=== PATIENT | female | born 1935 | race Caucasian/White ===

== ENCOUNTER → 2023-08-10 13:43 | Outpatient (REF) | payer OTHER, SELFPAY | LOC: DHCBS HW 13:43 | PROVIDERS: ATTENDING PHYSICIAN Internal Medicine Interventional Cardiology; FAMILY PHYSICIAN Internal Medicine Geriatric Medicine | DX: R00.2 Palpitations (principal) | CPT/HCPCS: 93306 ==

== ENCOUNTER → 2023-09-11 12:13 | Outpatient (REF) | payer OTHER, SELFPAY ==
[2023-09-11 13:21] LABS: Blood Urea Nitrogen 17 mg/dl (7-17); Calcium 9.8 mg/dl (8.4-10.2); Carbon Dioxide 29 mmol/L (22-30); Chloride 101 mmol/L (98-107); Glucose 101 mg/dl (70-99); Potassium 4.5 mmol/L (3.5-5.1); Sodium 137 mmol/L (135-145); eGFR > 60.00
== END ==
LOC: REG 12:13
PROVIDERS: ATTENDING PHYSICIAN Internal Medicine Interventional Cardiology; FAMILY PHYSICIAN Internal Medicine Geriatric Medicine
DX: I10 Essential (primary) hypertension (principal)
CPT/HCPCS: 36415; 80048

== ENCOUNTER → 2024-08-26 12:34 | Outpatient (REF) | payer OTHER, SELFPAY ==
[2024-08-26 13:20] LABS: % Basophils 0.9 % (0-2); % Eosinophils 1.9 % (0-6); % Immature Granulocytes 0.3 % (0-0.5); % Lymphocytes 20.3 % (20.5-51.1); % Monocytes 5.5 % (1.7-9.3); % Neutrophils 71.1 % (42.2-75.2); Absolute Basophils 0.1 10^3/uL (0-0.2); Absolute Eosinophils 0.1 10^3/uL (0-0.7); Absolute Lymphocytes 1.4 10^3/uL (1.2-3.4); Absolute Monocytes 0.4 10^3/uL (0.1-0.6); Absolute Neutrophils 4.9 10^3/uL (1.4-6.5); Hematocrit 45.5 % (37.0-47.0); Hemoglobin 15.7 g/dL (12.0-16.0); Mean Corp Hgb Conc. 34.5 g/dL (33.0-37.0); Mean Corpuscular Volume 92.7 fL (81.0-99.0); Mean Platelet Volume 9.3 fL (7.4-10.4); Nucleated Red Blood Cells % 0 %; Platelet Count 264 10^3/uL (130-400); Red Blood Cell Count 4.91 10^6/uL (4.20-5.40); Red Cell Dist. Width 12.7 % (11.5-14.5); White Blood Cell Count 6.9 10^3/uL (4.8-10.8)
[2024-08-26 13:38] LABS: Urine Albumin 1+ (Neg - Trace); Urine Bilirubin Negative (Negative); Urine Character Clear (Clear); Urine Color Yellow; Urine Glucose Negative (Negative); Urine Ketone Negative (Negative); Urine Leukocyte Negative (Negative); Urine Nitrite Negative (Negative); Urine Occult Blood 1+ (Negative); Urine Specific Gravity 1.015 (<1.030); Urine Urobilinogen Negative (Neg - 1+); Urine pH 6.5 (5.0-9.0)
[2024-08-26 13:49] LABS: Urine Bacteria Few (Negative); Urine Red Blood Cell 0-2 /HPF (0-2)
[2024-08-26 14:01] LABS: ALT (SGPT) 16 U/L (0-35); AST (SGOT) 21 U/L (14-36); Albumin 4.2 g/dl (3.5-5.0); Alkaline Phosphatase 86 U/L (38-126); Blood Urea Nitrogen 15 mg/dl (7-17); Calcium 9.9 mg/dl (8.4-10.2); Carbon Dioxide 30 mmol/L (22-30); Chloride 101 mmol/L (98-107); Glucose 102 mg/dl (70-99); HDL Cholesterol 49 mg/dl; LDL Cholesterol, Calculated 123 mg/dl; Potassium 4.3 mmol/L (3.5-5.1); Sodium 137 mmol/L (135-145); Total Bilirubin 0.8 mg/dl (0.2-1.3); Total Cholesterol 192 mg/dl (50-199); Total Protein 7.1 g/dl (6.3-8.2); Triglyceride 100 mg/dl (10-149); Very Low Density Lipoprotein 20 mg/dl (0-30); eGFR > 60.00
[2024-08-26 14:14] LABS: Glycohemoglobin (HgbA1c) 5.7 % (4.0-5.6)
[2024-08-26 14:16] LABS: Vitamin D, 25-OH*** 23.4 ng/mL (30-80)
[2024-08-26 14:30] LABS: TSH 1.52 uIU/ml (0.47-4.68)
== END ==
LOC: REG 12:34
PROVIDERS: ATTENDING PHYSICIAN Internal Medicine Geriatric Medicine
DX: E78.2 Mixed hyperlipidemia (principal); I10 Essential (primary) hypertension; E55.9 Vitamin D deficiency, unspecified; E03.8 Other specified hypothyroidism; R73.03 Prediabetes; R53.1 Weakness; E66.09 Other obesity due to excess calories; R60.0 Localized edema; M48.061 Spinal stenosis, lumbar region without neurogenic claudication; G47.09 Other insomnia; K21.00 Gastro-esophageal reflux disease with esophagitis, without bleeding; I11.9 Hypertensive heart disease without heart failure; M54.50 Low back pain, unspecified
CPT/HCPCS: 36415; 80053; 80061; 81003; 81015; 82306; 83036; 84443; 85025

== ENCOUNTER → 2025-02-03 07:36 | Outpatient (REF) | payer OTHER, SELFPAY | LOC: MRI 3T 07:36 | PROVIDERS: ATTENDING PHYSICIAN Specialist; FAMILY PHYSICIAN Internal Medicine Geriatric Medicine | DX: M25.551 Pain in right hip (principal); M54.16 Radiculopathy, lumbar region | CPT/HCPCS: 72148; 73721 ==

== ENCOUNTER → 2025-03-03 14:23 | Outpatient (REF) | payer OTHER, SELFPAY ==
[2025-03-03 15:50] LABS: ALT (SGPT) 15 U/L (0-35); AST (SGOT) 19 U/L (14-36); Albumin 4.4 g/dl (3.5-5.0); Alkaline Phosphatase 73 U/L (38-126); Blood Urea Nitrogen 14 mg/dl (7-17); Calcium 9.6 mg/dl (8.4-10.2); Carbon Dioxide 30 mmol/L (22-30); Chloride 103 mmol/L (98-107); Glucose 98 mg/dl (70-99); HDL Cholesterol 49 mg/dl; LDL Cholesterol, Calculated 55 mg/dl; Potassium 4.5 mmol/L (3.5-5.1); Sodium 138 mmol/L (135-145); Total Protein 7.3 g/dl (6.3-8.2); Very Low Density Lipoprotein 11 mg/dl (0-30); eGFR > 60.00
[2025-03-04 09:18] LABS: Glycohemoglobin (HgbA1c) 6.0 % (4.0-5.6)
== END ==
LOC: REG 14:23
PROVIDERS: ATTENDING PHYSICIAN Internal Medicine Interventional Cardiology; FAMILY PHYSICIAN Internal Medicine Geriatric Medicine
DX: I10 Essential (primary) hypertension (principal); E78.2 Mixed hyperlipidemia; R73.03 Prediabetes; R00.2 Palpitations
CPT/HCPCS: 36415; 80053; 80061; 83036